=== PATIENT | male | born 1995 | race Two or more races ===

== ENCOUNTER 2016-11-27 07:11 | Emergency (ER) | payer MEDICAID ==
[~2016-11-27] VITALS: Ht 175.3 cm; Wt 63.5 kg
[2016-11-27] MEDS ORDERED: SODIUM CHLORIDE 0.9% 1,000 ML IVB ONE (07:24)
[2016-11-27] MEDS ORDERED: ONDANSETRON HCL 4 MG/2 ML VIAL IV ONE (07:30)
[2016-11-27 07:54] LABS: Basophils # (auto) 0 uL; Basophils % (auto) 0.3 % (0.0-2.0); Eosinophils # (auto) 0 uL; Hematocrit 51.2 % (41.0-53.0); Hemoglobin 17.2 g/dL (13.5-17.5); Lymphocytes # (auto) 1.3 uL; Lymphocytes % (auto) 11.5 % (10.0-50.0); Mean Corpuscular Hgb Conc. 33.7 g/dL (32.0-36.0); Mean Platelet Volume 8.3 fL (7.4-10.4); Monocytes # (auto) 0.6 uL; Monocytes % (auto) 5.5 % (0.0-12.0); Neutrophils # (auto) 9.3 uL; Neutrophils % (auto) 82.7 % (37.0-80.0); Platelet Count (auto) 249 10^3/uL (140-450); Red Cell Distribution Width 12.7 % (11.6-16.0); White Blood Cell 11.3 10^3/uL (4.4-10.8)
[2016-11-27 08:28] LABS: Albumin 4.4 g/dL (3.4-5.0); BUN/Creatinine Ratio 16.7; Calcium 9.2 mg/dL (8.5-10.1); Total Protein 8.1 g/dL (6.4-8.2)
[2016-11-27 08:35] LABS: Potassium 2.8 mmol/L (3.5-5.1)
[2016-11-27] MEDS ORDERED: POTASSIUM CHL 20 Meq TABLET PO ONE (08:45)
[2016-11-27 08:50] VITALS: BP 153/83
== END 2016-11-27 09:03 | disposition home or self-care (01) ==
LOC: EDUNIT# 07:11 → ER 07:23
DX: K29.70 Gastritis, unspecified, without bleeding (principal); F12.10 Cannabis abuse, uncomplicated
CPT/HCPCS: 36415; 80053; 85025; 94761; 96361; 96374; 99284; J2405; J7030